=== PATIENT | female | born 1985 | race Caucasian/White ===

== ENCOUNTER → 2016-07-03 | Outpatient (CLI) | payer BC ==
--- NOTE | 2016-07-03 16:03 | REP ---
OBSTETRICAL FOLLOW UP OR REPEAT EACH GESTATION: HISTORY: Followup anatomy. COMPARISON: 06/12/2016 The prior examination failed to optimally visualize facial views, three vessel umbilical cord, spine and lower extremities. Today's examination shows a single living intrauterine gestation in the cephalic presentation. Doppler interrogation of the heart shows a heart rate of 141 beats per minute. The placenta is anterior and not low lying. The subjective amniotic fluid volume is within normal limits. The cervix measures 3.7 cm in length and is closed. Evaluation of the maternal adnexal spaces show no abnormalities. A nuchal cord could not be ruled out since the cord was seen to drape across the neck area. All anatomical structures not seen on the prior examination were seen today to be within normal limits. BPD 5.8 cm = 23 weeks 5 days HC 21.0 cm = 23 weeks 0 days AC 17.3 cm = 22 weeks 2 days FL 3.9 cm = 22 weeks 5 days The estimated weight is 513 grams which is at the 29th percentile for a 23 week 1 days gestational age. IMPRESSION: Followup anatomical survey as described above. Today's exam shows a single living intrauterine gestation 23 weeks 0 days by composite criteria with an QUITA of 10/30/2016 by today's exam. Signed by Reza Sarabia DO 07/03/2016 04:40 P
== END ==
LOC: M RAD 14:47
PROVIDERS: ATTEND Obstetrics & Gynecology
DX: Z36 Encounter for antenatal screening of mother (principal); Z3A.23 23 weeks gestation of pregnancy

== ENCOUNTER → 2016-07-31 | Outpatient (CLI) | payer BC ==
[2016-07-31 14:28] LABS: MEAN CORPUSCULAR HEMOGLOBIN 33.4 pg (27.0-33.0); MEAN CORPUSCULAR HGB CONC 33.1 g/dl (32.0-36.5); MEAN CORPUSCULAR VOLUME 100.8 fl (80.0-96.0); RED CELL DISTRIBUTION WIDTH 12.5 % (11.5-14.5); WHITE BLOOD COUNT 9.3 K/mm3 (4.0-10.0)
== END ==
LOC: M LAB 13:08
PROVIDERS: ATTEND Advanced Practice Midwife
DX: Z34.02 Encounter for supervision of normal first pregnancy, second trimester (principal)
CPT/HCPCS: 36415; 82950; 85027; 86850; 86901; J2790

== ENCOUNTER → 2016-08-10 | Outpatient (CLI) | payer BC | LOC: M LAB 08:12 | PROVIDERS: ATTEND Obstetrics & Gynecology | DX: R73.02 Impaired glucose tolerance (oral) (principal) ==

== ENCOUNTER → 2016-09-24 | Outpatient (REF) | payer BC | LOC: M LAB REF 13:14 | PROVIDERS: ATTEND Obstetrics & Gynecology | DX: Z34.83 Encounter for supervision of other normal pregnancy, third trimester (principal) ==

== ENCOUNTER 2016-10-30 02:15 | Inpatient (IN) | payer BC ==
[~2016-10-30] VITALS: Ht 157.5 cm; Wt 64.0 kg
[2016-10-30] VITALS (34 sets, daily range): BP systolic 95–142; BP diastolic 50–88
[2016-10-30] MEDS ORDERED: LACTATED RINGER'S 1000 ML IV STA (02:27)
[2016-10-30 03:11] LABS: MEAN CORPUSCULAR HEMOGLOBIN 30.8 pg (27.0-33.0); MEAN CORPUSCULAR HGB CONC 32.4 g/dl (32.0-36.5); MEAN CORPUSCULAR VOLUME 95.1 fl (80.0-96.0); RED CELL DISTRIBUTION WIDTH 13.1 % (11.5-14.5); WHITE BLOOD COUNT 15.7 K/mm3 (4.0-10.0)
[2016-10-30] MEDS ORDERED: PRENTAB9 PO (03:30)
--- NOTE | 2016-10-30 06:47 | HPEPDOC ---
Obstetrical History & Physical General Date of Admission October 30, 2016 at 02:15 Primary Care Physician: JEY MARQUEZ CNM History of Present Illness Patient is a 31-year-old female who is a at 40 weeks 1 day gestation based off of her first trimester ultrasound. She initiated care in her first trimester at [facility]. Her has been uncomplicated. She presents to labor and delivery with complaints of contractions every 3 minutes. She denies leaking of fluid or vaginal bleeding. Reports active movement. 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 BREAST: . ABDOMEN: Gravid and non-tender to touch. FETUS: Is vertex (VTX) by sterile vaginal examination (SVE), fetus is vertex ( VTX) by Kevin. HEART RATE: Regular rate and rhythm. LUNGS: Clear to auscultation (CTA). EXTREMITIES: No edema. Laboratory Data 24H LABS Laboratory Tests 2 10/30/16 02:47: Serology Scanned Report Hepatitis B Testing 10/30/16 03:05: CBC/BMP Laboratory Tests 10/30/16 03:04 Red Blood Count 3.85 L, Mean Corpuscular Volume 95.1, Mean Corpuscular Hemoglobin 30.8, Mean Corpuscular Hemoglobin Concent 32.4, Red Cell Distribution Width 13.1 Urine Culture: No Growth Pertinent Laboratoy Data Blood Type: A- RBC Antibody Screen: Negative HIV: Negative Hepatitis B: Negative Rapid Plasma Reagin: Nonreactive Rubella: Immune Chlamydia/Gonorrhea: Negative Group B Streptococcus: Negative Quad Screen Test: Declined Glucose Tolerance Test: 134 Vaginal Examination Dilation: 5 cm Effacement: Other (100%) Station: 0 Presentation: Cephalic presentation Position: Vertex (occiput) Assessment Heart Rate (FHR): 140 Variability: Moderate Accelerations: Positive Decelerations: Early Tocometer Contractions: Yes Frequency: regular Strength: palpated as strong Multi-drug resistant Organism: No history of MDRO Assessment/Plan Assessment IUP at 40 weeks 1 day gestation Active labor at term Category 1 heart rate tracing Plan Admit to labor and delivery. Saline lock per protocol labs per protocol. Patient does not desire an epidural this time. Anticipate cervical change and spontaneous vaginal delivery. JEY MARQUEZ CNM October 30, 2016 06:47
--- NOTE | 2016-10-30 07:33 | IPNPDOC ---
Date Seen The patient was seen on 10/30/16 at 0715. Progress Note SUBJECTIVE: Patient is coping well. She declines pain management options. OBJECTIVE: heart rate 140, moderate variability, positive accelerations, early decelerations noted. Contractions every 2-5 minutes. SVE: 6-7/100/0 station, small amount of bloody show, bulging bag of membranes. AROM with consent from patient to a small amount of clear fluid. VITAL SIGNS: Please see below. ASSESSMENT: IUP at 40 weeks 1 day gestation, active labor, category 1 heart rate tracing. PLAN: Patient is progressing well. She may have an epidural if she requests. Anticipate cervical change and spontaneous vaginal delivery. VS, I&O, 24H, Fishbone Laboratory Data 24H LABS Laboratory Tests 2 10/30/16 02:47: Serology Scanned Report Hepatitis B Testing 10/30/16 03:05: CBC/BMP Laboratory Tests 10/30/16 03:04 Red Blood Count 3.85 L, Mean Corpuscular Volume 95.1, Mean Corpuscular Hemoglobin 30.8, Mean Corpuscular Hemoglobin Concent 32.4, Red Cell Distribution Width 13.1 JEY MARQUEZ CNM October 30, 2016 07:33
[2016-10-30] MEDS ORDERED: OXYTOCIN 30 UNITS IN 0.9% NaCl 500ML IV BAG (J2590) As Ordered ONE (07:38)
[2016-10-30] MEDS ORDERED: LR 1,000 ML IV SCH (12:20)
[2016-10-30] MEDS ORDERED: FENTANYL 2MCG/ML ROPIVACAINE 0.2% IN 0.9% NACL 200ML IVBAG As Ordered ONE (12:24)
[2016-10-30] MEDS ORDERED: OXYTOCIN DRIP 30 UNITS in APPROPRIATE DILUENT 1 EA IV SCH (12:30)
[2016-10-30] MEDS ORDERED: ePHEDrine SULFATE 25 MG/5 ML(5MG/ML) SYRINGE IV PRN (13:15)
[2016-10-30] MEDS ORDERED: EPIDURAL COMMENT XX SCH (13:15)
[2016-10-30] MEDS ORDERED: LACTATED RINGER'S 1000 ML IV PRN (13:15)
[2016-10-30] MEDS ORDERED: ONDANSETRON 4MG/2ML VIAL (J2405) IV PRN ×2 (13:15→18:30)
[2016-10-30] MEDS ORDERED: diphenhydrAMINE INJ 50MG/ML VIAL (J1200) IV PRN (13:15)
[2016-10-30] MEDS ORDERED: REFRIGERATOR IV KEYS XX PRN (13:15)
[2016-10-30] MEDS ORDERED: NALOXONE INJ 0.4 MG/1 ML VIAL (J2310) IV PRN (13:15)
[2016-10-30] MEDS ORDERED: FENTANYL/ROPIVACAINE/NACL BAG 200 ML EPIDURAL SCH (13:15)
[2016-10-30] MEDS ORDERED: EPIDURAL/PCA KEYS XX PRN (13:15)
--- NOTE | 2016-10-30 15:44 | IPNPDOC ---
Date Seen The patient was seen on 10/30/16 at 1100. Progress Note SUBJECTIVE: Patient coping well. She is moving and breathing well through her contractions. OBJECTIVE: SVE: 8/100/0, moderate amount of show, clear fluid leaking. FHR 150, periods of minimal and moderate variability noted with early decelerations and occasional variable decelerations. Contractions every 1.5 to 5 minutes. VS: 131/ 68, HR 72, RR 18. ASSESSMENT: IUP at 40 weeks 1 day gestation, active labor at term, Category II FHR tracing with periods of Category I PLAN: Minimal cervical change in 2 hours. Reviewed the options to use Pitocin to augment labor. Education done with patient on medication along with risks/ benefits. Patient agrees with plan of care. Pitocin ordered via IV. VS, I&O, 24H, Essence Laboratory Data 24H LABS Laboratory Tests 2 10/30/16 02:47: Serology Scanned Report Hepatitis B Testing 10/30/16 03:05: Syphilis Serology NONREACTIVE CBC/BMP Laboratory Tests 10/30/16 03:04 Red Blood Count 3.85 L, Mean Corpuscular Volume 95.1, Mean Corpuscular Hemoglobin 30.8, Mean Corpuscular Hemoglobin Concent 32.4, Red Cell Distribution Width 13.1 JEY MARQUEZ CNM October 30, 2016 12:20
[2016-10-30] MEDS ORDERED: ceFAZolin 2 GM/D5W 50 ML IV BAG (J0690) As Ordered ONE (16:54)
[2016-10-30 18:24] LABS: CORD GAS ABE A -16.4; CORD GAS ABE V -16.4; CORD GAS HCO3 A 13.8 MEQ/L; CORD GAS HCO3 V 13.5 MEQ/L; CORD GAS O2 SAT A 53.4 %; CORD GAS O2 SAT V 41.4 %; CORD GAS PCO2 A 48.5 mmHg; CORD GAS PCO2 V 46.5 mmHg; CORD GAS PH A 7.072 UNITS; CORD GAS PH V 7.081 UNITS; CORD GAS PO2 A 26.2 mmHg; CORD GAS PO2 V 24.8 mmHg; CORD GAS SBC A 11.8 MEQ/L; CORD GAS SBC V 11.6 MEQ/L; CORD GAS TCO2 A 15.3 MEQ/L; CORD GAS TCO2 V 14.9 MEQ/L
[2016-10-30] MEDS ORDERED: RHOGAM 300 MCG (1500 IU) INJ (J2790) IM SCH (18:30)
[2016-10-30] MEDS ORDERED: MEASLES,MUMPS,RUBELLA VACCINE INJ (MMR-II) (90707) SC SCH (18:30)
[2016-10-30] MEDS ORDERED: MOM 30ML SUSPENSION UDC PO PRN (18:30)
[2016-10-30] MEDS ORDERED: ANUSOL HC CREAM 30GM TOP PRN (18:30)
[2016-10-30] MEDS ORDERED: METHYLERGONOVINE MALEATE 0.2 MG TAB PO PRN (18:30)
[2016-10-30] MEDS ORDERED: DIBUCAINE 1% OINTMENT 30GM TOP PRN (18:30)
[2016-10-30] MEDS ORDERED: ACETAMINOPHEN 500 MG TAB PO PRN (18:30)
--- NOTE | 2016-10-30 18:58 | IPNPDOC ---
Date Seen The patient was seen on 10/30/16 at 1300. Progress Note SUBJECTIVE: Patient is comfortable with epidural. OBJECTIVE: heart rate 150, periods of moderate variability along with minimal variability note. Occasional variables noted. Contractions every 2-3 minutes. Vital signs: 112/64, heart rate 89. SVE: No change. ASSESSMENT: IUP at 40 weeks 1 day gestation, active labor, category 1 heart rate tracing with periods category 2. PLAN: Dr. Castro notified on patient's status and also heart rate strip. He'll be in to see patient. Pitocin turned off. Ephedrine was given due to low blood pressure. VS, I&O, 24H, Fishbone Laboratory Data 24H LABS Laboratory Tests 2 10/30/16 02:47: Serology Scanned Report Hepatitis B Testing 10/30/16 03:05: Syphilis Serology NONREACTIVE 10/30/16 18:12: Cord Arterial Blood pH 7.072, Cord Arterial Blood PCO2 48.5, Cord Arterial Blood PO2 26.2, Cord Arterial Blood HCO3 13.8, Cord Arterial Blood Total CO2 15.3, Cord Arterial Blood Base Excess -16.4, Cord Arterial Base Excess ( Standard 11.8, Cord Arterial Bld Oxygen Saturation 53.4, Cord Venous Blood pH 7.081, Cord Venous Blood PCO2 46.5, Cord Venous Blood PO2 24.8, Cord Venous Blood HCO3 13.5, Cord Venous Blood Total CO2 14.9, Cord Venous Base Excess ( Actual) -16.4, Cord Venous Base Excess (Standard) 11.6, Cord Venous Blood Oxygen Saturation 41.4 CBC/BMP Laboratory Tests 10/30/16 03:04 Red Blood Count 3.85 L, Mean Corpuscular Volume 95.1, Mean Corpuscular Hemoglobin 30.8, Mean Corpuscular Hemoglobin Concent 32.4, Red Cell Distribution Width 13.1 JEY MARQUEZ CNM October 30, 2016 18:55
[2016-10-30] MEDS: IBUPROFEN 800 MG TAB PO PRN (19:14)
[2016-10-30] MEDS: DOCUSATE SODIUM 100 MG CAP PO SCH (21:52)
[2016-10-31 05:55] VITALS: BP 97/50
[2016-10-31 06:31] LABS: MEAN CORPUSCULAR HEMOGLOBIN 31.6 pg (27.0-33.0); MEAN CORPUSCULAR HGB CONC 33.2 g/dl (32.0-36.5); MEAN CORPUSCULAR VOLUME 95.1 fl (80.0-96.0); RED CELL DISTRIBUTION WIDTH 13.6 % (11.5-14.5); WHITE BLOOD COUNT 21.9 K/mm3 (4.0-10.0)
[2016-10-31] MEDS: PRENATAL VITAMIN TAB PO SCH (08:14)
[2016-10-31] MEDS: DOCUSATE SODIUM 100 MG CAP PO SCH ×2 (08:14→21:00)
[2016-10-31 10:10] VITALS: BP 111/62
[2016-10-31 14:10] VITALS: BP 119/72
[2016-10-31] MEDS: IBUPROFEN 800 MG TAB PO PRN (16:21)
[2016-10-31 17:45] VITALS: BP 123/57
--- NOTE | 2016-10-31 21:12 | DN ---
DATE: 10/30/2016 Katheryn is a 31-year-old female, 1, para 0, who was admitted at 39 plus weeks gestation with spontaneous rupture of membranes. She underwent Pitocin augmentation. Progressed to fully dilated with deep variable deceleration down to 80 beats per minute. With the baby in an direct occiput posterior position, she then pushed for approximately 2 hours with an epidural on board. She delivered a live female infant with a nuchal cord times one. scores were 2, 6, 7, and 8. The baby was cared for by our sill worker, Dr. Arteaga. Placenta delivered spontaneously intact, 3-vessel cord. A small left labial laceration was noted, which was repaired using 2-0 chromic. Estimated blood loss 350 mL. Both mother and baby in stable condition. [facility]
[2016-11-01 05:47] VITALS: BP 98/52
[2016-11-01] MEDS: PRENATAL VITAMIN TAB PO SCH (07:44)
[2016-11-01] MEDS: DOCUSATE SODIUM 100 MG CAP PO SCH (07:44)
[2016-11-01] MEDS: IBUPROFEN 800 MG TAB PO PRN (10:43)
[2016-11-01] MEDS ORDERED: IBUP-1114 PO (11:27)
[2016-11-01] MEDS ORDERED: ACET50TA PO (11:27)
[2016-11-01] MEDS ORDERED: MILKSUS PO (11:27)
[2016-11-01] MEDS ORDERED: COLA100C3 PO (11:27)
== END 2016-11-01 12:00 | disposition home or self-care (01) | DRG 560 ==
LOC: M LDI 02:15 → M OBS 21:13
PROVIDERS: ADMIT Obstetrics & Gynecology; ATTEND Obstetrics & Gynecology
PROC: 10E0XZZ Delivery of Products of Conception, External Approach (ICD-10-PCS; principal; 2016-10-30)
PROC: 10907ZC Drainage of Amniotic Fluid, Therapeutic from Products of Conception, Via Natural or Artificial Opening (ICD-10-PCS; 2016-10-30)
PROC: 0HQ9XZZ Repair Perineum Skin, External Approach (ICD-10-PCS; 2016-10-30)
DX: O48.0 Post-term pregnancy (principal); Z3A.40 40 weeks gestation of pregnancy; O76 Abnormality in fetal heart rate and rhythm complicating labor and delivery; O70.0 First degree perineal laceration during delivery; O69.81X0 Labor and delivery complicated by cord around neck, without compression, not applicable or unspecified; Z37.0 Single live birth

== ENCOUNTER → 2018-03-11 | Outpatient (REF) | payer BC ==
[2018-03-11 14:13] LABS: FERRITIN 94 NG/ML (8-252); IRON (FE) 74 UG/DL (50-170); PERCENT SATURATION 21.7 % (13.2-45.0); TOTAL IRON BINDING CAPACITY 341 UG/DL (250-450)
== END ==
LOC: M LAB REF 13:30
DX: D64.9 Anemia, unspecified (principal)
CPT/HCPCS: 83550

== ENCOUNTER → 2022-07-14 | Outpatient (REF) | payer BC ==
[~2022-07-14] MED LIST: COLA100C5 PO; IBUP-1114 PO; MAPA500T2 PO; MILK120011 PO; PRENTAB9 PO
== END ==
LOC: M LAB REF 11:27
PROVIDERS: ATTEND Internal Medicine
DX: R79.89 Other specified abnormal findings of blood chemistry (principal)